=== PATIENT | female | born 1955 | race Two or more races ===

== ENCOUNTER 2021-05-29 10:08 | Inpatient (IN) | payer OTHER ==
[2021-05-29] MEDS ORDERED: ACETAMINOPHEN 1000 MG/100 ML BAG IVPB ONE (10:28)
[2021-05-29] MEDS ORDERED: ACETAMINOPHEN INJECTION 100 ML IVPB ONE (10:37)
[2021-05-29 11:49] LABS: BASO % 0.4 % (0-2.0); EOS % 0.6 % (0-4.5); HEMATOCRIT 34.2 % (32.4-45.2); HEMOGLOBIN 11.3 GM/dL (10.7-15.3); MCH 33.2 pg (25.7-33.7); MEAN CELL VOLUME 100.7 fl (80-96); MONO % 6.3 % (3.8-10.2); NEUT % 66.7 % (42.8-82.8); PLATELET COUNT 253 10^3/uL (134-434); RBC 3.39 M/mm3 (3.60-5.2); RDW 15.6 % (11.6-15.6); WHITE BLOOD COUNT 6.5 K/mm3 (4.0-10.0)
[2021-05-29 12:12] LABS: CALCIUM 8.5 mg/dL (8.5-10.1)
[2021-05-29 12:13] LABS: ALBUMIN 3.6 g/dl (3.4-5.0); BLOOD UREA NITROGEN 10.8 mg/dL (7-18); CREATININE 0.6 mg/dL (0.55-1.3); MAGNESIUM 2.1 mg/dL (1.8-2.4)
[2021-05-29 12:15] LABS: BILIRUBIN,TOTAL 0.6 mg/dL (0.2-1); TOT PROT 7.7 g/dl (6.4-8.2)
[2021-05-29 14:45] LABS: PHOSPHOROUS 3.4 mg/dL (2.5-4.9)
[2021-05-29 14:49] LABS: N-TERMINAL BNP 452.4 pg/ml (5-125)
[2021-05-29] MEDS: AMIODARONE HCL 200 MG TABLET PO SCH (14:53)
[2021-05-29] MEDS ORDERED: AMIODARONE HCL 200 MG TABLET ONE (15:03)
[2021-05-29] MEDS ORDERED: CARVEDILOL 3.125 MG TABLET (FP) ONE (22:04)
[2021-05-29] MEDS ORDERED: APIXABAN 5 MG TABLET ONE (22:04)
[2021-05-29] MEDS: APIXABAN 5 MG TABLET PO SCH (22:09)
[2021-05-29] MEDS: CARVEDILOL 3.125 MG TABLET (FP) PO SCH (22:09)
[2021-05-29 22:40] LABS: EPI CELLS >36 /uL (0-25.1); HYALINE CASTS 4 /uL (0-3.1); URINE APPEARANCE CLOUDY; URINE BACTERIA >9,000 /uL (0-1359); URINE BILIRUBIN NEGATIVE (NEGATIVE); URINE COLOR YELLOW; URINE GLUCOSE (UA) NEGATIVE (NEGATIVE); URINE KETONE TRACE (NEGATIVE); URINE LEUK ESTERASE 2+ (NEGATIVE); URINE NITRITE NEGATIVE (NEGATIVE); URINE PROTEIN 1+ (NEGATIVE); URINE RBC 44 /uL (0-23.9); URINE WBC 304 /uL (0-25.8)
[2021-05-30 04:29] VITALS: BMI 36.4
[2021-05-30 08:06] LABS: SARS-CoV-2 NAA Not Detected (Not Detected)
[2021-05-30 08:24] LABS: BASO % 0.5 % (0-2.0); EOS % 2.4 % (0-4.5); HEMATOCRIT 31.9 % (32.4-45.2); HEMOGLOBIN 10.3 GM/dL (10.7-15.3); LYMPH % 38.3 % (8-40); MCHC 32.4 g/dl (32.0-36.0); MEAN CELL VOLUME 101.9 fl (80-96); MEAN PLT VOLUME 8.3 fl (7.5-11.1); MONO % 7.5 % (3.8-10.2); NEUT % 51.3 % (42.8-82.8); PLATELET COUNT 211 10^3/uL (134-434); RBC 3.13 M/mm3 (3.60-5.2); RDW 15.7 % (11.6-15.6); WHITE BLOOD COUNT 5.5 K/mm3 (4.0-10.0)
[2021-05-30 08:43] LABS: CALCIUM 8.2 mg/dL (8.5-10.1)
[2021-05-30 08:44] LABS: ALBUMIN 2.9 g/dl (3.4-5.0); BLOOD UREA NITROGEN 14.7 mg/dL (7-18)
[2021-05-30 08:47] LABS: CREATININE 0.6 mg/dL (0.55-1.3)
[2021-05-30 08:48] LABS: BILIRUBIN,TOTAL 0.8 mg/dL (0.2-1); TOT PROT 6.6 g/dl (6.4-8.2)
[2021-05-30] MEDS: CARVEDILOL 3.125 MG TABLET (FP) PO SCH ×2 (09:38→21:50)
[2021-05-30] MEDS: APIXABAN 5 MG TABLET PO SCH ×2 (09:38→21:50)
[2021-05-30] MEDS: AMIODARONE HCL 200 MG TABLET PO SCH (09:38)
[2021-05-30] MEDS: TORSEMIDE 20 MG TABLET (FP) PO SCH (10:51)
[2021-05-30] MEDS ORDERED: ALBUTEROL SO4 HFA INHALER IH PRN (10:53)
[2021-05-30] MEDS ORDERED: SPIRONOLACTONE 25 MG TABLET PO SCH (11:00)
[2021-05-30] MEDS: POLYETHYLENE GLYCOL (HEALTHYLAX) 3350 17 GM PACKET PO SCH (11:51)
[2021-05-30] MEDS: SACUBITRIL/VALSARTAN 49 MG-51 MG TABLET PO SCH ×2 (13:01→21:50)
[2021-05-30] MEDS: SPIRONOLACTONE 25 MG TABLET PO SCH (13:01)
[2021-05-30] MEDS: ATORVASTATIN CA 80 MG TABLET (FP) PO SCH (21:50)
[2021-05-31] MEDS ORDERED: CEFTRIAXONE 1 GM in DEXTROSE 5%-WATER - 50 ML IVPB SCH (10:00)
[2021-05-31] MEDS ORDERED: PANTOPRAZOLE 40 MG TABLET PO SCH (10:00)
[2021-05-31 10:19] LABS: CALCIUM 8.2 mg/dL (8.5-10.1)
[2021-05-31 10:20] LABS: ALBUMIN 3.1 g/dl (3.4-5.0); BLOOD UREA NITROGEN 17.9 mg/dL (7-18)
[2021-05-31 10:23] LABS: CREATININE 0.8 mg/dL (0.55-1.3)
[2021-05-31 10:25] LABS: BILIRUBIN,TOTAL 0.9 mg/dL (0.2-1); TOT PROT 7.1 g/dl (6.4-8.2)
[2021-05-31] MEDS ORDERED: DEXTROSE 5%-WATER - 50 ML IVPB ONE (11:04)
[2021-05-31] MEDS ORDERED: cefTRIAXone SODIUM 1 GM VIAL ONE (11:04)
[2021-05-31] MEDS: AMIODARONE HCL 200 MG TABLET PO SCH (11:09)
[2021-05-31] MEDS: CARVEDILOL 3.125 MG TABLET (FP) PO SCH ×2 (11:09→23:00)
[2021-05-31] MEDS: APIXABAN 5 MG TABLET PO SCH ×2 (11:09→23:00)
[2021-05-31] MEDS: POLYETHYLENE GLYCOL (HEALTHYLAX) 3350 17 GM PACKET PO SCH ×2 (11:09→11:21)
[2021-05-31] MEDS: SPIRONOLACTONE 25 MG TABLET PO SCH (11:09)
[2021-05-31] MEDS: TORSEMIDE 20 MG TABLET (FP) PO SCH (11:13)
[2021-05-31] MEDS: SACUBITRIL/VALSARTAN 49 MG-51 MG TABLET PO SCH ×2 (11:13→23:00)
[2021-05-31 11:29] LABS: HEMATOCRIT 32.5 % (32.4-45.2); HEMOGLOBIN 10.9 GM/dL (10.7-15.3); MCH 33.2 pg (25.7-33.7); MCHC 33.4 g/dl (32.0-36.0); MEAN CELL VOLUME 99.3 fl (80-96); MEAN PLT VOLUME 7.7 fl (7.5-11.1); PLATELET COUNT 221 10^3/uL (134-434); RBC 3.27 M/mm3 (3.60-5.2); RDW 15.3 % (11.6-15.6); WHITE BLOOD COUNT 5.2 K/mm3 (4.0-10.0)
[2021-05-31] MEDS: ATORVASTATIN CA 80 MG TABLET (FP) PO SCH (23:00)
[2021-05-31] MEDS: CEFUROXIME AXETIL 250 MG TABLET PO SCH (23:00)
[2021-06-01] MEDS: ACETAMINOPHEN 325 MG TABLET (FP) PO PRN (02:28)
[2021-06-01] MEDS ORDERED: ALBUTEROL SO4 2.5/IPRATROPIUM 0.5 INH SOL 3 ML VIAL.NEB. NEB SCH (09:00)
[2021-06-01 09:31] LABS: BASO % 0.6 % (0-2.0); EOS % 2.4 % (0-4.5); HEMATOCRIT 34.1 % (32.4-45.2); HEMOGLOBIN 11.3 GM/dL (10.7-15.3); LYMPH % 39.7 % (8-40); MCH 33.3 pg (25.7-33.7); MCHC 33.1 g/dl (32.0-36.0); MEAN CELL VOLUME 100.5 fl (80-96); MEAN PLT VOLUME 8.3 fl (7.5-11.1); MONO % 5.7 % (3.8-10.2); NEUT % 51.6 % (42.8-82.8); PLATELET COUNT 249 10^3/uL (134-434); RDW 15.2 % (11.6-15.6); WHITE BLOOD COUNT 5.5 K/mm3 (4.0-10.0)
[2021-06-01] MEDS ORDERED: traMADol HCL 50 MG TABLET PO ONE (10:00)
[2021-06-01 10:01] LABS: CALCIUM 8.5 mg/dL (8.5-10.1)
[2021-06-01 10:02] LABS: ALBUMIN 3.3 g/dl (3.4-5.0); MAGNESIUM 1.9 mg/dL (1.8-2.4)
[2021-06-01 10:04] LABS: BLOOD UREA NITROGEN 24.1 mg/dL (7-18)
[2021-06-01] MEDS: CARVEDILOL 3.125 MG TABLET (FP) PO SCH ×2 (10:04→21:11)
[2021-06-01 10:05] LABS: CREATININE 0.9 mg/dL (0.55-1.3)
[2021-06-01 10:06] LABS: TOT PROT 7.4 g/dl (6.4-8.2)
[2021-06-01] MEDS: CEFUROXIME AXETIL 250 MG TABLET PO SCH ×2 (10:07→21:10)
[2021-06-01] MEDS: SACUBITRIL/VALSARTAN 49 MG-51 MG TABLET PO SCH ×2 (10:07→21:11)
[2021-06-01] MEDS: POLYETHYLENE GLYCOL (HEALTHYLAX) 3350 17 GM PACKET PO SCH ×2 (10:07→11:21)
[2021-06-01] MEDS: AMIODARONE HCL 200 MG TABLET PO SCH (10:08)
[2021-06-01] MEDS: TORSEMIDE 20 MG TABLET (FP) PO SCH (10:08)
[2021-06-01] MEDS: SPIRONOLACTONE 25 MG TABLET PO SCH (10:08)
[2021-06-01] MEDS: APIXABAN 5 MG TABLET PO SCH ×2 (10:08→21:11)
[2021-06-01 10:21] LABS: BILIRUBIN,TOTAL 0.8 mg/dL (0.2-1)
[2021-06-01 12:17] LABS: PHOSPHOROUS 4.2 mg/dL (2.5-4.9)
[2021-06-01] MEDS: ATORVASTATIN CA 80 MG TABLET (FP) PO SCH (21:10)
[2021-06-02 09:34] LABS: BASO % 0.7 % (0-2.0); EOS % 2.3 % (0-4.5); HEMATOCRIT 35.8 % (32.4-45.2); HEMOGLOBIN 11.8 GM/dL (10.7-15.3); LYMPH % 32.3 % (8-40); MCH 33.2 pg (25.7-33.7); MCHC 32.8 g/dl (32.0-36.0); MEAN CELL VOLUME 101.1 fl (80-96); MEAN PLT VOLUME 8.3 fl (7.5-11.1); MONO % 5.7 % (3.8-10.2); PLATELET COUNT 248 10^3/uL (134-434); RBC 3.54 M/mm3 (3.60-5.2); RDW 15.5 % (11.6-15.6)
[2021-06-02 09:50] LABS: CALCIUM 8.4 mg/dL (8.5-10.1); MAGNESIUM 2.1 mg/dL (1.8-2.4)
[2021-06-02 09:54] LABS: PHOSPHOROUS 3.6 mg/dL (2.5-4.9)
[2021-06-02] MEDS: APIXABAN 5 MG TABLET PO SCH ×2 (10:54→22:11)
[2021-06-02] MEDS: SPIRONOLACTONE 25 MG TABLET PO SCH (10:54)
[2021-06-02] MEDS: AMIODARONE HCL 200 MG TABLET PO SCH (10:54)
[2021-06-02] MEDS: CEFUROXIME AXETIL 250 MG TABLET PO SCH ×2 (10:54→22:11)
[2021-06-02] MEDS: POLYETHYLENE GLYCOL (HEALTHYLAX) 3350 17 GM PACKET PO SCH ×2 (10:54→10:59)
[2021-06-02] MEDS: SACUBITRIL/VALSARTAN 49 MG-51 MG TABLET PO SCH ×2 (10:55→22:11)
[2021-06-02] MEDS: CARVEDILOL 3.125 MG TABLET (FP) PO SCH ×2 (15:23→22:11)
[2021-06-02] MEDS ORDERED: SPIRONOLACTONE 25 MG TABLET PO SCH ×2 (15:55→16:10)
[2021-06-02] MEDS: TORSEMIDE 20 MG TABLET (FP) PO SCH (18:41)
[2021-06-02] MEDS: ATORVASTATIN CA 80 MG TABLET (FP) PO SCH (22:11)
[2021-06-03] MEDS ORDERED: guaiFENesin 200 MG/10 ML 10 ML UNIT-DOSE CUPS PO ONE (01:58)
[2021-06-03] MEDS: ACETAMINOPHEN 325 MG TABLET (FP) PO PRN ×2 (05:44→23:47)
[2021-06-03 09:19] LABS: HEMATOCRIT 35.5 % (32.4-45.2); HEMOGLOBIN 11.5 GM/dL (10.7-15.3); MCH 32.8 pg (25.7-33.7); MCHC 32.4 g/dl (32.0-36.0); MEAN CELL VOLUME 101.1 fl (80-96); MEAN PLT VOLUME 8.3 fl (7.5-11.1); PLATELET COUNT 244 10^3/uL (134-434); RBC 3.51 M/mm3 (3.60-5.2); RDW 15.5 % (11.6-15.6); WHITE BLOOD COUNT 5.4 K/mm3 (4.0-10.0)
[2021-06-03] MEDS: CARVEDILOL 3.125 MG TABLET (FP) PO SCH ×2 (09:24→21:37)
[2021-06-03] MEDS: POLYETHYLENE GLYCOL (HEALTHYLAX) 3350 17 GM PACKET PO SCH (09:24)
[2021-06-03] MEDS: CEFUROXIME AXETIL 250 MG TABLET PO SCH ×2 (09:24→21:37)
[2021-06-03] MEDS: AMIODARONE HCL 200 MG TABLET PO SCH (09:24)
[2021-06-03] MEDS: APIXABAN 5 MG TABLET PO SCH ×2 (09:24→21:37)
[2021-06-03] MEDS: SACUBITRIL/VALSARTAN 49 MG-51 MG TABLET PO SCH ×2 (09:24→21:37)
[2021-06-03] MEDS: TORSEMIDE 20 MG TABLET (FP) PO SCH (09:25)
[2021-06-03] MEDS: SPIRONOLACTONE 25 MG TABLET PO SCH (09:25)
[2021-06-03] MEDS: DIGOXIN 0.125 MG TABLET PO SCH (09:25)
[2021-06-03 10:01] LABS: ALBUMIN 3.3 g/dl (3.4-5.0); BLOOD UREA NITROGEN 24.8 mg/dL (7-18); CALCIUM 8.9 mg/dL (8.5-10.1)
[2021-06-03 10:04] LABS: CREATININE 0.7 mg/dL (0.55-1.3)
[2021-06-03 10:05] LABS: BILIRUBIN,TOTAL 0.7 mg/dL (0.2-1); TOT PROT 7.4 g/dl (6.4-8.2)
[2021-06-03] MEDS: ATORVASTATIN CA 80 MG TABLET (FP) PO SCH (21:37)
[2021-06-04] MEDS ORDERED: MELATONIN 5 MG TABLETS PO ONE (01:42)
[2021-06-04] MEDS: AMIODARONE HCL 200 MG TABLET PO SCH (11:15)
[2021-06-04] MEDS: SPIRONOLACTONE 25 MG TABLET PO SCH (11:15)
[2021-06-04] MEDS: DIGOXIN 0.125 MG TABLET PO SCH (11:15)
[2021-06-04] MEDS: TORSEMIDE 20 MG TABLET (FP) PO SCH (11:16)
[2021-06-04] MEDS: APIXABAN 5 MG TABLET PO SCH ×2 (11:16→22:06)
[2021-06-04] MEDS: CEFUROXIME AXETIL 250 MG TABLET PO SCH ×2 (11:16→22:06)
[2021-06-04] MEDS: SACUBITRIL/VALSARTAN 49 MG-51 MG TABLET PO SCH ×2 (11:16→22:06)
[2021-06-04] MEDS: POLYETHYLENE GLYCOL (HEALTHYLAX) 3350 17 GM PACKET PO SCH (11:16)
[2021-06-04] MEDS: CARVEDILOL 3.125 MG TABLET (FP) PO SCH ×2 (11:16→22:06)
[2021-06-04] MEDS: ATORVASTATIN CA 80 MG TABLET (FP) PO SCH (22:06)
[2021-06-05] MEDS ORDERED: MELATONIN 5 MG TABLETS PO SCH (01:45)
[2021-06-05 08:47] LABS: HEMATOCRIT 35.5 % (32.4-45.2); HEMOGLOBIN 11.6 GM/dL (10.7-15.3); MCHC 32.6 g/dl (32.0-36.0); MEAN CELL VOLUME 101.3 fl (80-96); MEAN PLT VOLUME 8.5 fl (7.5-11.1); PLATELET COUNT 229 10^3/uL (134-434); RBC 3.51 M/mm3 (3.60-5.2); WHITE BLOOD COUNT 6.3 K/mm3 (4.0-10.0)
[2021-06-05 08:55] LABS: INR 1.3 (0.83-1.09)
[2021-06-05 08:57] LABS: ACTIVATED PTT 30.9 SECONDS (25.2-36.5)
[2021-06-05 09:22] LABS: ALBUMIN 3.5 g/dl (3.4-5.0)
[2021-06-05 09:23] LABS: BLOOD UREA NITROGEN 31.6 mg/dL (7-18)
[2021-06-05 09:25] LABS: CREATININE 0.9 mg/dL (0.55-1.3)
[2021-06-05 09:26] LABS: BILIRUBIN,TOTAL 0.5 mg/dL (0.2-1); TOT PROT 7.8 g/dl (6.4-8.2)
[2021-06-05] MEDS: APIXABAN 5 MG TABLET PO SCH (11:33)
[2021-06-05] MEDS: SPIRONOLACTONE 25 MG TABLET PO SCH (11:33)
[2021-06-05] MEDS: AMIODARONE HCL 200 MG TABLET PO SCH (11:33)
[2021-06-05] MEDS: DIGOXIN 0.125 MG TABLET PO SCH (11:33)
[2021-06-05] MEDS: CARVEDILOL 3.125 MG TABLET (FP) PO SCH (11:33)
[2021-06-05] MEDS: POLYETHYLENE GLYCOL (HEALTHYLAX) 3350 17 GM PACKET PO SCH (11:33)
[2021-06-05] MEDS: TORSEMIDE 20 MG TABLET (FP) PO SCH (11:35)
[2021-06-05] MEDS: SACUBITRIL/VALSARTAN 49 MG-51 MG TABLET PO SCH (11:40)
[2021-06-05 14:08] VITALS: BP 105/70; PULSE 70; TEMP 98.2
== END 2021-06-05 17:18 | DRG 55 ==
LOC: JER 10:08 → JERBED 13:04 → INTOOBSV 13:04 → UNDOADMOB 13:04 → JERBED 05-30 01:06 → J5S 05-30 01:06 → JERBED 05-30 14:17 → OBSVTOIN 06-01 08:29
PROVIDERS: ADMIT Internal Medicine; ATTEND Internal Medicine
DX: D32.9 Benign neoplasm of meninges, unspecified (principal); I48.20 Chronic atrial fibrillation, unspecified; I50.22 Chronic systolic (congestive) heart failure; N39.0 Urinary tract infection, site not specified; L89.322 Pressure ulcer of left buttock, stage 2; G93.0 Cerebral cysts; R29.6 Repeated falls; I10 Essential (primary) hypertension; E78.5 Hyperlipidemia, unspecified
CPT/HCPCS: 36415; 70450-TC; 70486-TC; 71045-TC-FY; 72125-TC; 72128-TC; 72170-TC-FY; 73000-TC-RT-FY; 78306-TC; 80048; 80053; 80162; 81003; 82550; 82553; 82607; 82746; 83735; 83880; 84100; 84443; 85025; 85027; 85610; 85730; 87086; 87186; 93005; 93010; 93970-TC; 97116-GP; 97162-GP; 99285-25; A9503; C9803-CS; G0378; U0003; U0005